=== PATIENT | male | born 1945 | race Caucasian/White ===

== ENCOUNTER 2021-11-16 14:00 | Inpatient (IN) ==
[2021-11-16] MEDS ORDERED: D5% in Water 1,000 ML IVC PRN (22:21)
[2021-11-16] MEDS ORDERED: *HR* Dextrose 50 % in Water (Syg) 50 ML SYRINGE IVP PRN (22:21)
[2021-11-16] MEDS ORDERED: Dextrose Gel 15 GM/37.5 ML TUBE PO PRN ×2 (22:21)
[2021-11-16] MEDS ORDERED: Insulin DETEMIR 100 UNIT/ML per UNIT SUBQ ONE (22:45)
[2021-11-16] MEDS: *HR* GlipiZIDE XL (24 HR) 10 MG TABLET PO SCH (22:47)
[2021-11-16] MEDS: Insulin LISPRO 300 UNITS/3 ML VIAL SUBQ SCH (22:47)
[2021-11-17] MEDS: *HR* Enoxaparin 40 MG/0.4 ML SYRINGE SQ SCH (06:09)
[2021-11-17] MEDS: Insulin LISPRO 300 UNITS/3 ML VIAL SUBQ SCH ×5 (08:33→21:12)
[2021-11-17] MEDS: FLUoxetine 20 MG CAPSULE PO SCH (09:12)
[2021-11-17] MEDS: Aspirin 81 MG TAB.CHEW PO SCH (09:12)
[2021-11-17] MEDS: Furosemide 20 MG TABLET PO SCH (09:12)
[2021-11-17] MEDS: Ascorbic Acid 500 MG TABLET PO SCH (09:13)
[2021-11-17] MEDS: *HR* GlipiZIDE XL (24 HR) 10 MG TABLET PO SCH ×2 (09:13→21:13)
[2021-11-17] MEDS: Thiamine (B-1) 100 MG TABLET PO SCH (09:13)
[2021-11-17] MEDS: Insulin DETEMIR 100 UNIT/ML X5UNITS SUBQ SCH ×2 (09:14→21:12)
[2021-11-18] MEDS: *HR* Enoxaparin 40 MG/0.4 ML SYRINGE SQ SCH (05:47)
[2021-11-18 06:04] LABS: Hematocrit 37.5 % (37.5-50.1); Hemoglobin 11.6 g/dL (12.9-16.9); Mean Corpuscular HGB Conc 30.9 g/dL (31.6-35.5); Mean Corpuscular Hemoglobin 27.6 pg (28.0-33.3); Mean Corpuscular Volume 89.1 fL (83.0-100.0); Platelet Count 410 K/mcL (140-400); Red Blood Count 4.21 M/mcL (4.19-5.50); Red Cell Distribution Width 15.9 % (11.5-14.5); White Blood Count 6.8 K/mcL (4.3-11.1)
[2021-11-18 06:19] LABS: Alanine Aminotransferase 25 Units/L (7-52); Albumin 3.1 g/dL (3.5-5.7); Albumin/Globulin Ratio 0.7 (1.1-2.2); Alkaline Phosphatase 55 Units/L (34-104); Aspartate Amino Transferase 24 Units/L (13-39); BUN/Creatinine Ratio 19 (6-26); Bilirubin,Total 0.6 mg/dL (0.3-1.0); Blood Urea Nitrogen 15 mg/dL (8-23); Calcium 9.3 mg/dL (8.6-10.3); Carbon Dioxide 30 mEq/L (23-29); Chloride 99 mEq/L (98-107); Globulin 4.7 g/dL (2.4-3.5); Glucose 95 mg/dL (70-105); Osmolality,Calculated 281 (280-300); Potassium 3.8 mEq/L (3.5-5.1); Sodium 135 mEq/L (136-145); Total Protein 7.8 g/dL (6.4-8.9); eGFR For African Americans > 60 (> 60); eGFR For Non-African Americans > 60 (> 60)
[2021-11-18] MEDS: FLUoxetine 20 MG CAPSULE PO SCH (08:33)
[2021-11-18] MEDS: *HR* GlipiZIDE XL (24 HR) 10 MG TABLET PO SCH ×2 (08:33→20:44)
[2021-11-18] MEDS: Furosemide 20 MG TABLET PO SCH (08:34)
[2021-11-18] MEDS: Thiamine (B-1) 100 MG TABLET PO SCH (08:34)
[2021-11-18] MEDS: Aspirin 81 MG TAB.CHEW PO SCH (08:34)
[2021-11-18] MEDS: Insulin DETEMIR 100 UNIT/ML X5UNITS SUBQ SCH ×2 (08:34→20:45)
[2021-11-18] MEDS: Ascorbic Acid 500 MG TABLET PO SCH (08:34)
[2021-11-18] MEDS: Insulin LISPRO 300 UNITS/3 ML VIAL SUBQ SCH ×4 (09:55→20:45)
[2021-11-19] MEDS: *HR* Enoxaparin 40 MG/0.4 ML SYRINGE SQ SCH (06:17)
[2021-11-19] MEDS: Furosemide 20 MG TABLET PO SCH (08:30)
[2021-11-19] MEDS: FLUoxetine 20 MG CAPSULE PO SCH (08:31)
[2021-11-19] MEDS: Thiamine (B-1) 100 MG TABLET PO SCH (08:31)
[2021-11-19] MEDS: Insulin DETEMIR 100 UNIT/ML X5UNITS SUBQ SCH ×2 (08:31→20:13)
[2021-11-19] MEDS: Ascorbic Acid 500 MG TABLET PO SCH (08:31)
[2021-11-19] MEDS: Aspirin 81 MG TAB.CHEW PO SCH (08:31)
[2021-11-19] MEDS: *HR* GlipiZIDE XL (24 HR) 10 MG TABLET PO SCH ×2 (08:31→20:08)
[2021-11-19] MEDS: Insulin LISPRO 300 UNITS/3 ML VIAL SUBQ SCH ×4 (08:32→20:09)
[2021-11-19] MEDS: Magnesium Oxide 400 MG TABLET PO SCH (20:09)
[2021-11-20] MEDS: *HR* Enoxaparin 40 MG/0.4 ML SYRINGE SQ SCH (06:11)
[2021-11-20] MEDS: Insulin LISPRO 300 UNITS/3 ML VIAL SUBQ SCH ×4 (07:28→21:16)
[2021-11-20] MEDS: Insulin DETEMIR 100 UNIT/ML X5UNITS SUBQ SCH ×2 (07:29→21:19)
[2021-11-20] MEDS: Aspirin 81 MG TAB.CHEW PO SCH (09:20)
[2021-11-20] MEDS: Thiamine (B-1) 100 MG TABLET PO SCH (09:21)
[2021-11-20] MEDS: Ascorbic Acid 500 MG TABLET PO SCH (09:21)
[2021-11-20] MEDS: Magnesium Oxide 400 MG TABLET PO SCH ×2 (09:21→21:19)
[2021-11-20] MEDS: FLUoxetine 20 MG CAPSULE PO SCH (09:21)
[2021-11-20] MEDS: *HR* GlipiZIDE XL (24 HR) 10 MG TABLET PO SCH ×2 (09:22→21:19)
[2021-11-20] MEDS: Furosemide 20 MG TABLET PO SCH (09:22)
[2021-11-21] MEDS: *HR* Enoxaparin 40 MG/0.4 ML SYRINGE SQ SCH (05:28)
[2021-11-21] MEDS: Insulin LISPRO 300 UNITS/3 ML VIAL SUBQ SCH ×4 (08:11→19:50)
[2021-11-21] MEDS: Furosemide 20 MG TABLET PO SCH (08:12)
[2021-11-21] MEDS: Aspirin 81 MG TAB.CHEW PO SCH (08:12)
[2021-11-21] MEDS: FLUoxetine 20 MG CAPSULE PO SCH (08:12)
[2021-11-21] MEDS: Ascorbic Acid 500 MG TABLET PO SCH (08:12)
[2021-11-21] MEDS: Thiamine (B-1) 100 MG TABLET PO SCH (08:12)
[2021-11-21] MEDS: *HR* GlipiZIDE XL (24 HR) 10 MG TABLET PO SCH ×2 (08:12→19:57)
[2021-11-21] MEDS: Magnesium Oxide 400 MG TABLET PO SCH ×2 (08:13→19:57)
[2021-11-21] MEDS: Insulin DETEMIR 100 UNIT/ML X5UNITS SUBQ SCH ×2 (08:24→19:57)
[2021-11-22] MEDS: *HR* Enoxaparin 40 MG/0.4 ML SYRINGE SQ SCH (04:31)
[2021-11-22 05:35] LABS: Hematocrit 38.3 % (37.5-50.1); Hemoglobin 11.7 g/dL (12.9-16.9); Mean Corpuscular HGB Conc 30.5 g/dL (31.6-35.5); Mean Corpuscular Hemoglobin 27.5 pg (28.0-33.3); Mean Corpuscular Volume 89.9 fL (83.0-100.0); Mean Platelet Volume 10.3 fL (9.4-12.4); Platelet Count 317 K/mcL (140-400); Red Blood Count 4.26 M/mcL (4.19-5.50); Red Cell Distribution Width 16.1 % (11.5-14.5)
[2021-11-22 05:53] LABS: Alanine Aminotransferase 27 Units/L (7-52); Albumin 3.3 g/dL (3.5-5.7); Albumin/Globulin Ratio 0.8 (1.1-2.2); Alkaline Phosphatase 57 Units/L (34-104); Aspartate Amino Transferase 24 Units/L (13-39); BUN/Creatinine Ratio 12 (6-26); Bilirubin,Total 0.6 mg/dL (0.3-1.0); Blood Urea Nitrogen 12 mg/dL (8-23); Calcium 8.8 mg/dL (8.6-10.3); Carbon Dioxide 31 mEq/L (23-29); Chloride 99 mEq/L (98-107); Globulin 4.4 g/dL (2.4-3.5); Glucose 90 mg/dL (70-105); Magnesium 1.5 mg/dL (1.6-2.6); Osmolality,Calculated 283 (280-300); Potassium 4.4 mEq/L (3.5-5.1); Sodium 137 mEq/L (136-145); Total Protein 7.7 g/dL (6.4-8.9); eGFR For African Americans > 60 (> 60); eGFR For Non-African Americans > 60 (> 60)
[2021-11-22] MEDS: Insulin LISPRO 300 UNITS/3 ML VIAL SUBQ SCH ×4 (08:08→20:49)
[2021-11-22] MEDS: Magnesium Oxide 400 MG TABLET PO SCH ×2 (08:39→20:04)
[2021-11-22] MEDS: FLUoxetine 20 MG CAPSULE PO SCH (08:40)
[2021-11-22] MEDS: Aspirin 81 MG TAB.CHEW PO SCH (08:40)
[2021-11-22] MEDS: Ascorbic Acid 500 MG TABLET PO SCH (08:40)
[2021-11-22] MEDS: *HR* GlipiZIDE XL (24 HR) 10 MG TABLET PO SCH ×2 (08:40→20:03)
[2021-11-22] MEDS: Furosemide 20 MG TABLET PO SCH (08:40)
[2021-11-22] MEDS: Thiamine (B-1) 100 MG TABLET PO SCH (08:40)
[2021-11-22] MEDS: Insulin DETEMIR 100 UNIT/ML X5UNITS SUBQ SCH ×2 (09:28→20:50)
[2021-11-23] MEDS: *HR* Enoxaparin 40 MG/0.4 ML SYRINGE SQ SCH (04:49)
[2021-11-23] MEDS: Magnesium Oxide 400 MG TABLET PO SCH ×2 (08:21→20:39)
[2021-11-23] MEDS: Ascorbic Acid 500 MG TABLET PO SCH (08:21)
[2021-11-23] MEDS: Thiamine (B-1) 100 MG TABLET PO SCH (08:21)
[2021-11-23] MEDS: *HR* GlipiZIDE XL (24 HR) 10 MG TABLET PO SCH ×2 (08:21→20:40)
[2021-11-23] MEDS: FLUoxetine 20 MG CAPSULE PO SCH (08:21)
[2021-11-23] MEDS: Furosemide 20 MG TABLET PO SCH (08:21)
[2021-11-23] MEDS: Aspirin 81 MG TAB.CHEW PO SCH (08:22)
[2021-11-23] MEDS: Insulin LISPRO 300 UNITS/3 ML VIAL SUBQ SCH ×4 (08:22→20:40)
[2021-11-23] MEDS: Insulin DETEMIR 100 UNIT/ML X5UNITS SUBQ SCH (08:23)
[2021-11-23] MEDS ORDERED: E-Z-HD (BARIUM SULF) SUSPENSION PO ONE (10:54)
[2021-11-23] MEDS ORDERED: E-Z-PAQUE (BARIUM SULF) SUSP 1 BOTTLE PO ONE (10:54)
[2021-11-23 18:11] VITALS: O2SAT 93
[2021-11-24] MEDS: *HR* Enoxaparin 40 MG/0.4 ML SYRINGE SQ SCH (05:28)
[2021-11-24 07:59] VITALS: BP 145/77; PULSE 94; RESP 17; TEMP 97.8
[2021-11-24] MEDS: Aspirin 81 MG TAB.CHEW PO SCH (08:14)
[2021-11-24] MEDS: Magnesium Oxide 400 MG TABLET PO SCH (08:14)
[2021-11-24] MEDS: Ascorbic Acid 500 MG TABLET PO SCH (08:14)
[2021-11-24] MEDS: FLUoxetine 20 MG CAPSULE PO SCH (08:15)
[2021-11-24] MEDS: *HR* GlipiZIDE XL (24 HR) 10 MG TABLET PO SCH (08:15)
[2021-11-24] MEDS: Thiamine (B-1) 100 MG TABLET PO SCH (08:15)
[2021-11-24] MEDS: Furosemide 20 MG TABLET PO SCH (08:15)
[2021-11-24] MEDS: Insulin LISPRO 300 UNITS/3 ML VIAL SUBQ SCH ×2 (08:16→11:29)
[2021-11-24] MEDS ORDERED: Insulin DETEMIR 100 UNIT/ML X5UNITS SUBQ SCH (09:00)
== END 2021-11-24 12:20 | disposition home health service (06) | DRG 189 ==
LOC: INPGRE 14:00
PROVIDERS: ADMIT Family Medicine; ATTEND Family Medicine